=== PATIENT | male | born 1980 | race Caucasian/White ===

== ENCOUNTER 2022-11-13 19:10 | Inpatient (IN) | payer OTHER ==
[2022-11-13 19:46] VITALS: BMI 17.6
[2022-11-13] MEDS ORDERED: NICOTINE POLACRILEX 2 MG GUM BUC PRN (20:07)
[2022-11-13] MEDS ORDERED: ACETAMINOPHEN 325 MG TABLET (FP) PO PRN (20:07)
[2022-11-13] MEDS ORDERED: IBUPROFEN 600 MG TABLET (FP) PO PRN (20:07)
[2022-11-13] MEDS ORDERED: IBUPROFEN 400 MG TABLET (FP) PO PRN (20:07)
[2022-11-13] MEDS ORDERED: DICYCLOMINE HCL 10 MG CAPSULE PO PRN (20:07)
[2022-11-13] MEDS ORDERED: NALOXONE HCL 0.4 MG/ML VIAL IM PRN (20:07)
[2022-11-13] MEDS ORDERED: LOPERAMIDE HCL 2 MG CAPSULE PO PRN (20:07)
[2022-11-13] MEDS ORDERED: POLYETHYLENE GLYCOL (HEALTHYLAX) 3350 17 GM PACKET PO PRN (20:07)
[2022-11-13] MEDS ORDERED: MAGNESIUM HYDROX 2400MG/30ML ORAL SUSPENSION 30 ML CUP PO PRN (20:07)
[2022-11-13] MEDS ORDERED: MAG HYDROX/AL HYDROX/SIMETH 30 ML UNIT-DOSE CUP PO PRN (20:07)
[2022-11-13] MEDS ORDERED: BENZOCAINE/MENTHOL (CHLORASEPTIC ) LOZENGE MM PRN (20:07)
[2022-11-13] MEDS ORDERED: guaiFENesin 600 MG TABLET.ER (FP) PO PRN (20:07)
[2022-11-13] MEDS ORDERED: BENZONATATE 200 MG CAPSULE PO PRN (20:07)
[2022-11-13] MEDS ORDERED: BISMUTH SUBSALICYLATE 524 MG/30 ML PO PRN (20:07)
[2022-11-13] MEDS ORDERED: NALOXONE HCL (KLOXXADO) 8 MG SPRAY NS PRN (20:07)
[2022-11-13] MEDS: hydrOXYzine PAMOATE 25 MG CAPSULE (FP) PO PRN (22:15)
[2022-11-13] MEDS: MELATONIN 5 MG TABLETS PO SCH (22:15)
[2022-11-13] MEDS: THIAMINE HCL 100 MG TABLET (FP) PO SCH (22:15)
[2022-11-13] MEDS: METHOCARBAMOL 500 MG TABLET PO PRN (22:16)
[2022-11-14] MEDS: METHOCARBAMOL 500 MG TABLET PO PRN ×2 (05:47→17:42)
[2022-11-14] MEDS: hydrOXYzine PAMOATE 25 MG CAPSULE (FP) PO PRN (05:47)
[2022-11-14] MEDS ORDERED: cloNIDine HCL 0.1 MG TABLET PO PRN (09:22)
[2022-11-14] MEDS: diazePAM 5 MG TABLET PO PRN ×2 (09:29→17:42)
[2022-11-14] MEDS: ONDANSETRON *ODT* 4 MG TABLET SL PRN ×2 (09:31→18:12)
[2022-11-14] MEDS ORDERED: methaDONE HCL 10 MG TABLET (FOR DETOX USE ONLY) PO ONE (09:45)
[2022-11-14] MEDS: NICOTINE 14 MG/24 HOURS TOPICAL PATCH TD SCH (10:26)
[2022-11-14] MEDS: PRENATAL VITAMINS W/ FOLIC ACID TABLET (FP) PO SCH (10:26)
[2022-11-14 12:23] LABS: HEMATOCRIT 35.8 % (35.4-49); HEMOGLOBIN 12.1 GM/dL (11.7-16.9); MCH 30.2 pg (25.7-33.7); MCHC 33.8 g/dl (32.0-35.9); MEAN CELL VOLUME 89.3 fl (80-96); MEAN PLT VOLUME 7.9 fl (7.5-11.1); PLATELET COUNT 197 10^3/uL (134-434); RBC 4.01 M/mm3 (4.00-5.60); RDW 14.4 % (11.9-15.9); WHITE BLOOD COUNT 6.1 K/mm3 (4.0-10.0)
[2022-11-14 12:29] LABS: POTASSIUM 3.7 mmol/L (3.5-5.1)
[2022-11-14 12:31] LABS: CALCIUM 7.9 mg/dL (8.5-10.1)
[2022-11-14 12:32] LABS: ALBUMIN 2.4 g/dl (3.4-5.0); BLOOD UREA NITROGEN 12.8 mg/dL (7-18)
[2022-11-14 12:34] LABS: CREATININE 0.7 mg/dL (0.55-1.3)
[2022-11-14 12:36] LABS: BILIRUBIN,TOTAL 0.1 mg/dL (0.2-1)
[2022-11-14] MEDS: THIAMINE HCL 100 MG TABLET (FP) PO SCH (23:21)
[2022-11-14] MEDS: MELATONIN 5 MG TABLETS PO SCH (23:21)
[2022-11-15] MEDS: diazePAM 5 MG TABLET PO PRN ×2 (05:37→17:03)
[2022-11-15 09:53] VITALS: RESP 16
[2022-11-15] MEDS: METHOCARBAMOL 500 MG TABLET PO PRN ×2 (10:26→17:02)
[2022-11-15] MEDS: NICOTINE 14 MG/24 HOURS TOPICAL PATCH TD SCH (10:26)
[2022-11-15] MEDS: PRENATAL VITAMINS W/ FOLIC ACID TABLET (FP) PO SCH (10:26)
[2022-11-15] MEDS ORDERED: CALCIUM 500MG/VIT-D 200 UNITS COMBO TABLET (FP) PO SCH (10:45)
[2022-11-15 13:04] VITALS: BP 106/68; PULSE 63; TEMP 96.2
[2022-11-15] MEDS: hydrOXYzine PAMOATE 25 MG CAPSULE (FP) PO PRN (17:03)
[2022-11-16] MEDS ORDERED: methaDONE HCL 10 MG TABLET (FOR DETOX USE ONLY) PO ONE (10:00)
[2022-11-18] MEDS ORDERED: methaDONE HCL 10 MG TABLET (FOR DETOX USE ONLY) PO ONE (10:00)
== END 2022-11-15 17:15 | disposition left against medical advice (07) | DRG 770 ==
LOC: YASAS 19:10 → Y6N 20:37
PROVIDERS: ADMIT Allergy & Immunology; ATTEND Surgery
PROC: HZ2ZZZZ Detoxification Services for Substance Abuse Treatment (ICD-10-PCS; principal; 2022-11-13)
DX: F11.23 Opioid dependence with withdrawal (principal); F14.20 Cocaine dependence, uncomplicated; F17.210 Nicotine dependence, cigarettes, uncomplicated; R79.89 Other specified abnormal findings of blood chemistry; Z87.39 Personal history of other diseases of the musculoskeletal system and connective tissue
CPT/HCPCS: 36415; 80053; 85027; 86780; 87811; 93005; 93010; C9803-CS; Q0162; U0003; U0005